=== PATIENT | male | born 1985 | race Caucasian/White ===

== ENCOUNTER → 2017-07-22 | Outpatient (CLI) | payer OTHER ==
--- NOTE | 2017-07-22 09:39 | DIAGNOSTIC IMAGING REPORT ---
(TESTICULAR) SCROTUM-CONT CLINICAL HISTORY: 32 years-old Male presenting with N50.9 Testicular massno latex allergy. Right side.[id number]. TECHNIQUE: Real-time grayscale and color and spectral Doppler ultrasound imaging of the scrotum was performed. COMPARISON: None. FINDINGS: Right testis: Normal echogenicity and echotexture. Testis measures 5.9 x 2.3 x 2.0 cm. Normal color Doppler flow and arterial and venous waveforms in the testicular parenchyma. Epididymal head, body, and tail enlarged though not hyperemic. Trace hydrocele. No varicocele. Left testis: Normal echogenicity and echotexture. Testis measures 5.3 x 2.6 x 3.1 cm. Normal color Doppler flow and arterial and venous waveforms in the testicular parenchyma. 2 mm epididymal head cyst or spermatocele noted. Trace hydrocele. No varicocele. Symmetric perfusion of the testes. IMPRESSION: 1. No evidence of testicular torsion or a testicular mass. 2. Enlarged right epididymis without hyperemia. This could represent early epididymitis. Follow-up ultrasound in 4-6 weeks could be considered. Although considered much less likely, this appearance can also be seen in the setting of scrotal tuberculosis. Electronically signed by: Pancho Jarvis M.D. 07/22/2017 9:37 AM Dictated Date/Time: 07/22/2017 9:31 AM
== END | disposition home or self-care (01) ==
LOC: C.ULTR 09:04
PROVIDERS: ATTEND Urology
DX: N50.9 Disorder of male genital organs, unspecified (principal); R93.8 Abnormal findings on diagnostic imaging of other specified body structures

== ENCOUNTER → 2017-07-22 | Outpatient (CLI) | payer OTHER | END | disposition home or self-care (01) | LOC: C.PATHSPEC 14:21 | PROVIDERS: ATTEND Urology | DX: Z30.2 Encounter for sterilization (principal) ==